=== PATIENT | male | born 1990 | race Hispanic/Latino ===

== ENCOUNTER 2023-10-12 19:01 | Emergency (ER) | payer SELFPAY ==
[2023-10-12] MEDS ORDERED: HYDROcodone/Acetaminophen 10/325 mg Tablet ONE (19:49)
[2023-10-12] MEDS ORDERED: Lidocaine 1% PF 5 ML VIAL ONE (20:31)
== END 2023-10-12 22:05 | disposition home or self-care (01) ==
LOC: CSHERS 19:01
DX: S52.571A Other intraarticular fracture of lower end of right radius, initial encounter for closed fracture (principal); W18.30XA Fall on same level, unspecified, initial encounter
CPT/HCPCS: 29125